=== PATIENT | male | born 1975 | race Asian ===

== ENCOUNTER 2022-11-23 09:37 | Day surgery (SDC) | payer OTHER ==
[~2022-11-23] VITALS: Ht 177.8 cm; Wt 83.9 kg
[2022-11-23] MEDS ORDERED: fentaNYL citrate 0.05 MG/ML VIAL ONE (12:19)
[2022-11-23] MEDS ORDERED: MIDAZOLAM 2 MG/2 ML VIAL ONE (12:20)
[2022-11-23] MEDS ORDERED: LIDOCAINE 2% 100 MG/5 ML UJET TP ONE ×2 (12:20→13:25)
[2022-11-23] MEDS ORDERED: fentaNYL citrate 0.05 MG/ML VIAL IVP ONE (13:25)
== END 2022-11-23 13:20 | disposition home or self-care (01) ==
LOC: MDS 09:37 → MMU 09:39 → MDS 13:20
PROVIDERS: ATTEND Internal Medicine Gastroenterology
DX: Z12.11 Encounter for screening for malignant neoplasm of colon (principal); Z80.0 Family history of malignant neoplasm of digestive organs
CPT/HCPCS: 45378; J3010; J2250